=== PATIENT | male | born 1965 | race Caucasian/White ===

== ENCOUNTER 2017-06-24 10:48 | Inpatient (IN) | payer BC ==
[~2017-06-24] VITALS: Ht 188 cm; Wt 105.5 kg
[2017-06-24] MEDS ORDERED: SODIUM CHLORIDE 0.9% 1000ML 1,000 ML IV STA (11:07)
[2017-06-24] MEDS ORDERED: GABA-113 PO (11:35)
[2017-06-24] MEDS ORDERED: ALT/10 PO (11:35)
[2017-06-24] MEDS ORDERED: ATOR-26 PO (11:35)
[2017-06-24] MEDS ORDERED: ASPI81TA28 PO (11:35)
[2017-06-24] MEDS ORDERED: LVMI SQ (11:35)
[2017-06-24] MEDS ORDERED: NVLG SQ ×2 (11:35)
[2017-06-24 11:41] LABS: BASO % 0.3 %; BASO ABS # 0.04 K/uL (0-0.2); COMPLETE YES; EOS % 1.1 %; HEMATOCRIT 39.5 % (42-52); IG% 0.3 %; LYMPH % 8.5 %; LYMPH ABS # 0.98 K/uL (1.2-3.4); MEAN CELL VOLUME 84.9 fL (80-100); MEAN CORPUSCULAR HEMOGLOBIN 28.8 pg (25-34); MEAN CORPUSCULAR HGB CONC 33.9 g/dl (32-36); MEAN PLATELET VOLUME 11.4 fL (7.4-10.4); MONO % 5.7 %; NEUT % 84.1 %; PLATELET COUNT 208 K/uL (130-400); RED BLOOD COUNT 4.65 M/uL (4.7-6.1); WHITE BLOOD COUNT 11.52 K/uL (4.8-10.8)
[2017-06-24 11:48] LABS: BUN/CREATININE RATIO 11.6 (10-20); CALCIUM 9.4 mg/dl (8.5-10.1); CREATININE 0.93 mg/dl (0.60-1.40); POTASSIUM 3.6 mmol/L (3.5-5.1)
--- NOTE | 2017-06-24 11:49 | EMERGENCY ROOM VISIT NOTE ---
History First contact with patient: 10:58 Chief Complaint: SWELLING TO EXTREMITY Stated Complaint: SWELLING TO LEFT FOOT History of Present Illness The patient is a 51 year old male who presents to the Emergency Room via private vehicle with complaints of "swelling to left foot". The patient states that he is a type I diabetic, with a last hemoglobin of 9.8, and this past Sunday noticed that he had a little bit of drainage from the bottom of his left foot. He was at [place] with his children, and has been traveling a lot since then. He states that he wrapped it with antibiotic gauze pads, and it seemed to improve. He states that unfortunately this week he has been flying a lot, and has been noticing some blistering between the left first digit and second digit of the foot. This then 2 days ago progressed to redness, and now he has red streaking up his left leg. He has been referred here by medics press over concern for a rapidly progressing cellulitis. His tetanus is up-to- date. He has minimal chills. He denies any fevers. Review of Systems A complete 10-point Review of Systems was discussed with the patient, with pertinent positives and negatives listed in the History of Present Illness. All remaining Review of Systems questions can be considered negative unless otherwise specified. Past Medical/Surgical History Type 1 diabetes Family History No pertinent Social History Smoking Status: Never Smoker Patient lives locally with family. Current/Historical Medications Scheduled Aspirin (Aspirin Ec), 81 MG PO DAILY Atorvastatin (Lipitor), 80 MG PO HS Gabapentin (Neurontin), 300 MG PO BID Insulin Aspart (Novolog), 20 UNITS SQ QAM Insulin Aspart (Novolog), 25 UNITS SQ DAILYBD Insulin Detemir (Levemir), 32 UNITS SQ HS Ramipril (Altace), 10 MG PO BID Physical Exam Vital Signs Date Time Temp Pulse Resp B/P (MAP) Pulse Ox O2 Delivery O2 Flow Rate FiO2 06/24/17 12:55 93 16 151/87 99 Room Air 06/24/17 10:50 36.7 97 18 144/91 97 Room Air Physical Exam VITAL SIGNS - Vital signs and nursing notes were reviewed. Stable. Afebrile. Hypertensive at 144/91, non-tachycardic and is saturating well on room air 97%. GENERAL -51-year-old male appearing his stated age who is in no acute distress. Communicates well with provider and answers questions appropriately. SKIN - the left foot displays erythema from the toes extending up to the midfoot region with lethargic streaking up to the location of the left knee. There is a small bullae between the left first and second toe. This is fluctuant, it is not purulent. HEAD - NC/AT. EYES - Sclera anicteric. EARS - No deformities of external structures noted on gross examination bilaterally. NOSE - Midline and without cyanosis. No epistaxis or purulent drainage noted. MOUTH/OROPHARYNX - Without perioral cyanosis. Buccal mucosa pink and moist and without leukoplakia. LUNGS - Chest wall symmetric without accessory muscle use, intercostals retractions, or central cyanosis. Normal vesicular breath sounds CTA B/L. No wheezes, rales, or rhonchi appreciated. CARDIAC - RRR with S1/S2. No murmur, rubs, or gallops appreciated. EXTREMITIES - No clubbing or peripheral cyanosis. No pretibial edema present. Skin changes as noted above. +5/5 strength noted in UE/LE bilaterally. NEUROLOGIC - Cranial nerves II through XII grossly intact. Sensory intact to light touch throughout. PSYCH - A&O, and cooperates fully with examiner. Pt is very pleasant and interacts well with examiner. Medical Decision & Procedures ER Provider Diagnostic Interpretation: LEFT VENOUS DOPP LOWER EXT UNILAT CLINICAL HISTORY: 51 years-old Male presenting with Left foot infection, concern for additional DVT. TECHNIQUE: Real-time grayscale and color and spectral Doppler ultrasound imaging of the veins of the 06/24/2017 was performed. Compression and augmentation were also utilized. COMPARISON: None. FINDINGS: Left: Common femoral vein: Patent. Femoral vein: Patent. Greater saphenous vein: Patent. Popliteal vein: Patent. Calf veins: Limited visualization. Other: Enlarged left inguinal lymph node, which maintains a benign morphology with normal fatty hilum and comparatively normal cortical thickness. IMPRESSION: No evidence of deep venous thrombosis. Electronically signed by: Min Bourgeois M.D. 06/24/2017 12:27 PM Dictated Date/Time: 06/24/2017 12:27 PM Laboratory Results 06/24/17 11:18 Red Blood Count 4.65, Mean Corpuscular Volume 84.9, Mean Corpuscular Hemoglobin 28.8, Mean Corpuscular Hemoglobin Concent 33.9, Mean Platelet Volume 11.4, Neutrophils (%) (Auto) 84.1, Lymphocytes (%) (Auto) 8.5, Monocytes (%) (Auto) 5.7, Eosinophils (%) (Auto) 1.1, Basophils (%) (Auto) 0.3, Neutrophils # (Auto) 9.68, Lymphocytes # (Auto) 0.98, Monocytes # (Auto) 0.66, Eosinophils # (Auto) 0.13, Basophils # (Auto) 0.04 06/24/17 11:18 Test 06/24/17 11:18 White Blood Count 11.52 K/uL (4.8-10.8) Red Blood Count 4.65 M/uL (4.7-6.1) Hemoglobin 13.4 g/dL (14.0-18.0) Hematocrit 39.5 % (42-52) Mean Corpuscular Volume 84.9 fL (80-100) Mean Corpuscular Hemoglobin 28.8 pg (25-34) Mean Corpuscular Hemoglobin Concent 33.9 g/dl (32-36) Platelet Count 208 K/uL (130-400) Mean Platelet Volume 11.4 fL (7.4-10.4) Neutrophils (%) (Auto) 84.1 % Lymphocytes (%) (Auto) 8.5 % Monocytes (%) (Auto) 5.7 % Eosinophils (%) (Auto) 1.1 % Basophils (%) (Auto) 0.3 % Neutrophils # (Auto) 9.68 K/uL (1.4-6.5) Lymphocytes # (Auto) 0.98 K/uL (1.2-3.4) Monocytes # (Auto) 0.66 K/uL (0.11-0.59) Eosinophils # (Auto) 0.13 K/uL (0-0.5) Basophils # (Auto) 0.04 K/uL (0-0.2) RDW Standard Deviation 42.1 fL (36.4-46.3) RDW Coefficient of Variation 13.6 % (11.5-14.5) Immature Granulocyte % (Auto) 0.3 % Immature Granulocyte # (Auto) 0.03 K/uL (0.00-0.02) Anion Gap 6.0 mmol/L (3-11) Est Creatinine Clear Calc Drug Dose 121.7 ml/min Estimated GFR () 109.8 Estimated GFR (Non- 94.7 BUN/Creatinine Ratio 11.6 (10-20) Lactic Acid Level 1.7 mmol/L (0.4-2.0) Calcium Level 9.4 mg/dl (8.5-10.1) Total Bilirubin 0.5 mg/dl (0.2-1) Aspartate Amino Transf (AST/SGOT) 10 U/L (15-37) Alanine Aminotransferase (ALT/SGPT) 31 U/L (12-78) Alkaline Phosphatase 164 U/L (45-117) Total Protein 7.5 gm/dl (6.4-8.2) Albumin 3.2 gm/dl (3.4-5.0) Globulin 4.3 gm/dl (2.5-4.0) Albumin/Globulin Ratio 0.7 (0.9-2) Medications Administered Medications (Trade) Dose Ordered Sig/Ricardo Route Start Time Stop Time Status Last Admin Dose Admin Sodium Chloride 1,000 ml @ 999 mls/hr Q1H1M STAT IV 06/24/17 11:07 06/24/17 12:07 DC 06/24/17 11:25 999 MLS/HR Medical Decision Patient was seen and evaluated as above. He presents to us today with an infection of the left foot extending up the left leg. It has been rapidly progressing noting it is only been 2 days. He is not on antibiotics. Unfortunately he does have type 1 diabetes, and has decreased sensation in his feet. His last A1c was 9.8. IV access was initiated, and the above workup was performed. Because of his long travel, I did elect to obtain a venous Doppler ultrasound this region to rule out additional pathology such as DVT. Slight leukocytosis, slight anemia. No evidence of kidney or liver failure. Glucose is high at 171, lactic acid is normal. Blood cultures are pending. Alkaline phosphatase is high at 164. He was given vancomycin and Zosyn secondary to the extent of the infection, being as though the redness extends via lymphangitic streaking up the location of the knee. This is concerning for greater than 50% of the extremity. I believe that inpatient management is warranted. Case was discussed with the attending physician. I discussed the case with the hospitalist, who agreed to evaluate the patient. Please refer to further documentation regarding his stay. In evaluation treatment this patient following differential diagnoses were entertained: Sepsis, cellulitis, among others. Impression Primary Impression: Swelling of left extremity Additional Impressions: Anemia Cellulitis Departure Information Dispostion Admitted as an inpatient Condition FAIR Referrals No Doctor, Assigned (PCP) Patient Instructions [facility] Problem Qualifiers
[2017-06-24 11:50] LABS: ALB/GLOB RATIO 0.7 (0.9-2)
--- NOTE | 2017-06-24 12:29 | DIAGNOSTIC IMAGING REPORT ---
LEFT VENOUS DOPP LOWER EXT UNILAT CLINICAL HISTORY: 51 years-old Male presenting with Left foot infection, concern for additional DVT. TECHNIQUE: Real-time grayscale and color and spectral Doppler ultrasound imaging of the veins of the 06/24/2017 was performed. Compression and augmentation were also utilized. COMPARISON: None. FINDINGS: Left: Common femoral vein: Patent. Femoral vein: Patent. Greater saphenous vein: Patent. Popliteal vein: Patent. Calf veins: Limited visualization. Other: Enlarged left inguinal lymph node, which maintains a benign morphology with normal fatty hilum and comparatively normal cortical thickness. IMPRESSION: No evidence of deep venous thrombosis. Electronically signed by: Min Bourgeois M.D. 06/24/2017 12:27 PM Dictated Date/Time: 06/24/2017 12:27 PM
[2017-06-24] MEDS ORDERED: PIPERACILLIN/TAZOBACTAM 4.5 GM/100ML D5W IV STA (13:06)
[2017-06-24] MEDS ORDERED: VANCOMYCIN 1GM/270ML NSS IV STA (13:06)
[2017-06-24] MEDS ORDERED: DEXTROSE 50% 50 ML SYR IV PRN (13:45)
[2017-06-24] MEDS ORDERED: MAGNESIUM HYDROXIDE SUSP 30 ML UDC PO PRN (13:45)
[2017-06-24] MEDS ORDERED: GLUCOSE 10 TABS/TUBE PO PRN (13:45)
[2017-06-24] MEDS ORDERED: GLUCOSE 40% GEL 15 GM TUBE PO PRN (13:45)
[2017-06-24] MEDS ORDERED: ONDANSETRON INJ 2 MG/ML 2 ML VIAL IV PRN (13:45)
[2017-06-24] MEDS ORDERED: ACETAMINOPHEN 325 MG TAB PO PRN (13:45)
[2017-06-24] MEDS ORDERED: GLUCAGON FOR INJ 1 MG VIAL SQ PRN (13:45)
--- NOTE | 2017-06-24 13:47 | History and Physical ---
History & Physical Date & Time of Service: Jun 24, 2017 at 13:36 Chief Complaint: Swelling To Left Foot Primary Care Physician: No Doctor, Assigned History of Present Illness Source: patient 51 y/o M c/o L foot swelling and redness. Pt states that he was a [place] recently and noted a "water blister". He was wrapping it with gauze and abx cream and he thought it had been looking better. He has had to travel a lot for work lately and took a red eye out of [place] Sunday night. He arrived to [place] Sunday morning and noted that his L LE was more red and swollen. Today it was worse with streaking into his leg so he went to [facility] for evaluation. He was sent here by their providers for further evaluation. He states he has been cold this morning, but no amberly fevers or chills. He has neuropathy and states that due to this he does not have much pain. He has felt well otherwise. Pt denies SOB, chest pain, abd pain, n/v/c/d. Pt was given IVF and abx in the ED and feels that the redness and swelling are both improving. Pt and family just moved to the area recently and need to establish with PCP. He had his A1c and lipids checked with his former PCP about 4 months ago and states that his A1c was 9.8 and lipids were "fine". Past Medical/Surgical History DM-I HTN Hyperlipidemia AL s/p stent 2014 Peripheral neuropathy Family History DM-II in uncle, hx of osteomyelitis Social History Smoking Status: Never Smoker Alcohol Use: occasionally (1-2 drinks every few weeks) Drug Use: none Allergies Coded Allergies: No Known Allergies (Unverified , 06/24/17) Home Medications Scheduled Aspirin (Aspirin Ec), 81 MG PO DAILY Atorvastatin (Lipitor), 80 MG PO HS Gabapentin (Neurontin), 300 MG PO BID Insulin Aspart (Novolog), 20 UNITS SQ QAM Insulin Aspart (Novolog), 25 UNITS SQ DAILYBD Insulin Detemir (Levemir), 32 UNITS SQ HS Ramipril (Altace), 10 MG PO BID Review of Systems Pertinent positives and negatives reviewed in HPI--all others negative Physical Exam Vital Signs Date Time Temp Pulse Resp B/P (MAP) Pulse Ox O2 Delivery O2 Flow Rate FiO2 06/24/17 12:55 93 16 151/87 99 Room Air 06/24/17 10:50 36.7 97 18 144/91 97 Room Air General Appearance: WD/WN, no apparent distress Head: normocephalic, atraumatic Eyes: normal inspection, EOMI Respiratory/Chest: normal breath sounds, no respiratory distress Cardiovascular: regular rate, rhythm, no edema Abdomen/GI: non tender, soft Extremities/Musculoskelatal: no calf tenderness, + pedal edema (mild, non- pitting) Neurologic/Psych: alert, normal mood/affect, oriented x 3 Skin: warm/dry, + pertinent finding (Large blister between 1st and 2nd toes on the L that is intact and non-fluctuant. Old healing blister on bottom of L foot with redness noted. Most substantial redness is dorsal surface of L foot with light pink spreading onto medial calf to knee) Diagnostics Laboratory Results Results Past 24 Hours Test 06/24/17 11:18 Range/Units White Blood Count 11.52 4.8-10.8 K/uL Red Blood Count 4.65 4.7-6.1 M/uL Hemoglobin 13.4 14.0-18.0 g/dL Hematocrit 39.5 42-52 % Mean Corpuscular Volume 84.9 80-100 fL Mean Corpuscular Hemoglobin 28.8 25-34 pg Mean Corpuscular Hemoglobin Concent 33.9 32-36 g/dl Platelet Count 208 130-400 K/uL Mean Platelet Volume 11.4 7.4-10.4 fL Neutrophils (%) (Auto) 84.1 % Lymphocytes (%) (Auto) 8.5 % Monocytes (%) (Auto) 5.7 % Eosinophils (%) (Auto) 1.1 % Basophils (%) (Auto) 0.3 % Neutrophils # (Auto) 9.68 1.4-6.5 K/uL Lymphocytes # (Auto) 0.98 1.2-3.4 K/uL Monocytes # (Auto) 0.66 0.11-0.59 K/uL Eosinophils # (Auto) 0.13 0-0.5 K/uL Basophils # (Auto) 0.04 0-0.2 K/uL RDW Standard Deviation 42.1 36.4-46.3 fL RDW Coefficient of Variation 13.6 11.5-14.5 % Immature Granulocyte % (Auto) 0.3 % Immature Granulocyte # (Auto) 0.03 0.00-0.02 K/uL Sodium Level 139 136-145 mmol/L Potassium Level 3.6 3.5-5.1 mmol/L Chloride Level 102 98-107 mmol/L Carbon Dioxide Level 31 21-32 mmol/L Anion Gap 6.0 3-11 mmol/L Blood Urea Nitrogen 11 7-18 mg/dl Creatinine 0.93 0.60-1.40 mg/dl Est Creatinine Clear Calc Drug Dose 121.7 ml/min Estimated GFR () 109.8 Estimated GFR (Non- 94.7 BUN/Creatinine Ratio 11.6 10-20 Random Glucose 171 70-99 mg/dl Lactic Acid Level 1.7 0.4-2.0 mmol/L Calcium Level 9.4 8.5-10.1 mg/dl Total Bilirubin 0.5 0.2-1 mg/dl Aspartate Amino Transf (AST/SGOT) 10 15-37 U/L Alanine Aminotransferase (ALT/SGPT) 31 12-78 U/L Alkaline Phosphatase 164 45-117 U/L Total Protein 7.5 6.4-8.2 gm/dl Albumin 3.2 3.4-5.0 gm/dl Globulin 4.3 2.5-4.0 gm/dl Albumin/Globulin Ratio 0.7 0.9-2 Microbiology Results 06/24/17 Blood Culture, Received Pending 06/24/17 Blood Culture, Received Pending Diagnostic Radiology L LE US: neg for DVT Impression Assessment and Plan 51 y/o M who was admitted on 06/24 for diabetic cellulitis Cellulitis: in the setting of DM-I Zosyn started in the ED, will continue Gentle IVF LE US neg for DVT Blood cx pending Mildly elevated WBC, afebrile Would care nurse to see DM-I: Last A1c was 4 months ago, 9.8 per pt Repeat continue home meds Non-fasting BS is 171 HTN: continue home meds Hyperlipidemia: continue home meds Lipids in AM Hx of AL: stent x1 continue aspirin 81mg Peripheral neuropathy: continue home meds Other: Full code DM diet Ambulation for DVT proph CM notified to assist in setting up a PCP Level of Care Med/Surg VTE Prophylaxis VTE Risk Assessment Done? Y/N: Yes Risk Level: Low
[2017-06-24 14:32] VITALS: BP 162/92; PULSE 92; TEMP 37; O2SAT 95; BMI 29.9
[2017-06-24 15:53] VITALS: BP 167/90; PULSE 93; TEMP 36.9; O2SAT 96
[2017-06-24 16:00] VITALS: O2SAT 96
[2017-06-24] MEDS ORDERED: PIPERACILL/TAZOBAC CONSULT ACTIVE PRN (16:15)
[2017-06-24] MEDS: SODIUM CHLORIDE 0.9% 1000ML 1,000 ML IV SCH (16:16)
[2017-06-24] MEDS: INSULIN ASPART 100 UNITS/ML 3 ML PEN SQ SCH ×2 (18:32→21:47)
[2017-06-24] MEDS ORDERED: PNEUMOCOCCAL POLYSACCHARIDES 25 MCG/0.5 ML VIAL/SYR IM. ONE (19:15)
[2017-06-24] MEDS ORDERED: PNEUMOCOCCAL ADMINISTRATION CHARGE ONE (19:15)
[2017-06-24] MEDS ORDERED: NON-FORMULARY MEDICATION (Ramipril (Altace) 10 MG) PO SCH (21:00)
[2017-06-24] MEDS: GABAPENTIN 300 MG CAP PO SCH (21:46)
[2017-06-24] MEDS: ATORVASTATIN 40 MG TAB PO SCH (21:46)
[2017-06-24] MEDS: INSULIN DETEMIR FLEXPEN/FLEX TOUCH 100 UNITS/ML 3ML SQ SCH (21:48)
[2017-06-24] MEDS: PIPERACILL/TAZOBAC IV 3.375 GM in DEXTROSE 5% 100ML 100 ML IV SCH (22:35)
[2017-06-25] VITALS (7 sets, daily range): BP systolic 129–149; BP diastolic 77–82; PULSE 85–106; TEMP 37.2–37.7; O2SAT 93–95; Ht 188 cm; Wt 105.5 kg
[2017-06-25] MEDS: ZOLPIDEM TARTRATE 5 MG TAB PO PRN ×2 (00:15→23:13)
[2017-06-25] MEDS: SODIUM CHLORIDE 0.9% 1000ML 1,000 ML IV SCH ×2 (02:54→15:57)
[2017-06-25 05:57] LABS: MEAN CELL VOLUME 86.7 fL (80-100); MEAN CORPUSCULAR HEMOGLOBIN 27.9 pg (25-34); MEAN CORPUSCULAR HGB CONC 32.2 g/dl (32-36); MEAN PLATELET VOLUME 11.1 fL (7.4-10.4); PLATELET COUNT 191 K/uL (130-400); RED BLOOD COUNT 4.27 M/uL (4.7-6.1); WHITE BLOOD COUNT 8.97 K/uL (4.8-10.8)
[2017-06-25] MEDS: PIPERACILL/TAZOBAC IV 3.375 GM in DEXTROSE 5% 100ML 100 ML IV SCH ×3 (06:30→22:28)
[2017-06-25 06:37] LABS: CHOLESTEROL/HDL RATIO 2.6
[2017-06-25 06:46] LABS: ESTIMATED AVERAGE GLUCOSE 295 mg/dl; HA1C FLAG Normal (Normal)
[2017-06-25] MEDS: INSULIN ASPART 100 UNITS/ML 3 ML PEN SQ SCH ×4 (08:52→21:16)
[2017-06-25] MEDS: ASPIRIN 81 MG ECTAB PO SCH (08:52)
[2017-06-25] MEDS: GABAPENTIN 300 MG CAP PO SCH ×2 (08:52→21:12)
[2017-06-25] MEDS: RAMIPRIL 10 MG CAP PO SCH ×2 (08:53→21:12)
[2017-06-25] MEDS ORDERED: INSULIN ASPART 100 UNITS/ML 3 ML PEN SQ SCH (09:00)
[2017-06-25] MEDS ORDERED: METOPROLOL SUCC 25MG EXT REL TAB PO ONE (10:00)
--- NOTE | 2017-06-25 14:08 | Wound Consultation: Inpatient ---
Wound Consultation Date of Consultation: Jun 25, 2017. Attending Physician: Ranjan Huggins D.O. Reason for Consultation: Blister formation and infection left foot History of Present Illness Patient states he noticed some swelling and redness to his left foot last Sunday evening. Patient states he has recently been traveling to [place] on business. Patient states that on Sunday the foot appeared more red and swollen. Patient was some squamous seen at [facility] on Sunday and transferred to the hospital for admission. Patient states she denies any fever chills or night sweats at the current time. Patient denies any known trauma. Patient states that he did have a prior blister formation on the plantar surface of this foot approximately 3 weeks ago unrelated to the current location. Patient states that this resolved on its own. Patient has no prior history of diabetic foot ulcers. Patient states that his diabetes has not been well controlled with a prior A1c in the 9 range. Patient denies any chest pain shortness of breath abdominal discomfort nausea or vomiting patient denies any other systemic complaints at this time. Social History Smoking Status: Former Smoker Alcohol Use: occasionally (1-2 drinks every few weeks) Drug Use: none Allergies Coded Allergies: No Known Allergies (Unverified , 06/24/17) Home Medications Scheduled Aspirin (Aspirin Ec), 81 MG PO DAILY Atorvastatin (Lipitor), 80 MG PO HS Gabapentin (Neurontin), 300 MG PO BID Insulin Aspart (Novolog), 20 UNITS SQ QAM Insulin Aspart (Novolog), 25 UNITS SQ DAILYBD Insulin Detemir (Levemir), 32 UNITS SQ HS Ramipril (Altace), 10 MG PO BID Inpatient Medications Current Inpatient Medications Medications (Trade) Dose Ordered Sig/Ricardo Route Start Time Stop Time Status Last Admin Dose Admin Acetaminophen (Tylenol Tab) 650 mg Q4H PRN PO 06/24/17 13:45 07/24/17 13:44 Magnesium Hydroxide (Milk Of Magnesia Susp) 30 ml Q6H PRN PO 06/24/17 13:45 07/24/17 13:44 Ondansetron HCl (Zofran Inj) 4 mg Q6H PRN IV 06/24/17 13:45 07/24/17 13:44 Glucose (Glucose 40% Gel) 15-30 GRAMS 15 GRAMS... UD PRN PO 06/24/17 13:45 07/24/17 13:44 Glucose (Glucose Chew Tab) 4-8 Tablets 4 Tabl... UD PRN PO 06/24/17 13:45 07/24/17 13:44 Dextrose (Dextrose 50% 50ML Syringe) 25-50ML OF 50% DW IV FOR... UD PRN IV 06/24/17 13:45 07/24/17 13:44 Glucagon (Glucagon Inj) 1 mg UD PRN SQ 06/24/17 13:45 07/24/17 13:44 Aspirin (Ecotrin Tab) 81 mg DAILY PO 06/25/17 09:00 07/25/17 08:59 06/25/17 08:52 81 MG Atorvastatin Calcium (Lipitor Tab) 80 mg HS PO 06/24/17 21:00 07/24/17 20:59 06/24/17 21:46 80 MG Gabapentin (Neurontin Cap) 300 mg BID PO 06/24/17 21:00 07/24/17 20:59 06/25/17 08:52 300 MG Insulin Aspart (novoLOG ASPART) ACHS SQ 06/24/17 16:30 07/24/17 16:29 06/25/17 12:40 10 UNITS Insulin Detemir (Levemir Flexpen/ FlexTouch) 32 units HS SQ 06/24/17 21:00 07/24/17 20:59 06/24/17 21:48 32 UNITS Piperacillin Sod/ Tazobactam Sod 3.375 gm/Dextrose 115 ml @ 28.75 mls/ hr Q8H IV 06/24/17 23:00 07/04/17 22:59 06/25/17 06:30 28.75 MLS/HR Sodium Chloride 1,000 ml @ 75 mls/hr [id number] IV 06/24/17 13:45 07/24/17 13:44 06/25/17 02:54 75 MLS/HR Piperacillin Sod/ Tazobactam Sod (Consult) 1 ea UD PRN N/A 06/24/17 16:15 07/24/17 16:14 Ramipril (Ramipril) 10 mg BID PO 06/25/17 09:00 07/25/17 08:59 06/25/17 08:53 10 MG Zolpidem Tartrate (Ambien Tab) 2.5 mg HS PRN PO 06/24/17 23:30 07/24/17 23:29 06/25/17 00:15 2.5 MG Metoprolol Succinate (Toprol Xl Tab) 25 mg QAM PO 06/26/17 09:00 07/26/17 08:59 Review of Systems 10 systems were reviewed and they're entirety and positive findings were noted in the chief complaint history of present illness. Physical Exam Date Time Temp Pulse Resp B/P (MAP) Pulse Ox O2 Delivery O2 Flow Rate FiO2 06/25/17 09:47 96 149/82 (104) 06/25/17 08:51 106 148/82 (104) 06/25/17 08:00 Room Air 06/25/17 07:24 37.2 85 18 138/81 (100) 95 Room Air 06/25/17 00:11 37.2 103 20 129/77 (94) 93 Room Air 06/25/17 00:00 Room Air 06/24/17 16:00 96 Room Air 06/24/17 15:53 36.9 93 20 167/90 (115) 96 Room Air 06/24/17 14:32 37.0 92 18 162/92 95 Room Air General: The patient is lying in a hospital bed in no distress. Alert, cooperative and appropriate to all questions. HEENT: Pupils equal and reactive to light. Sclera clear, EOM intact. Neck: Supple, No JVD noted Chest: CTA in all espana. No deformity Heart: RRR without murmurs, S3, S4, thrills, rubs or heaves Extremities: There is a purulent blister formation present on the dorsal and web location between the first and second toes on the left foot. This extends 1 to the plantar surface. No active drainage is present. No tenderness to palpation noted. Fluctuance is noted at the site. Sensation is significantly diminished throughout the toe areas. Pulses are +2 dorsal pedal thousand posterior tibial region. Distal capillary refill is less than 2 seconds. Full range of motion is present in the foot and toe region. Some periwound erythema is noted. No edema or calf tenderness present. Neurological: Alert and oriented x3. No focal deficits. Skin: No rashes, papules, vesicles, excoriations Laboratory Results Last 24 Hours Test 06/24/17 16:25 06/24/17 20:14 9/18/17 05:24 06/25/17 07:35 Bedside Glucose 156 mg/dl 271 mg/dl 136 mg/dl White Blood Count 8.97 K/uL Red Blood Count 4.27 M/uL Hemoglobin 11.9 g/dL Hematocrit 37.0 % Mean Corpuscular Volume 86.7 fL Mean Corpuscular Hemoglobin 27.9 pg Mean Corpuscular Hemoglobin Concent 32.2 g/dl RDW Standard Deviation 43.2 fL RDW Coefficient of Variation 13.6 % Platelet Count 191 K/uL Mean Platelet Volume 11.1 fL Estimated Average Glucose 295 mg/dl Hemoglobin A1c 11.9 % Triglycerides Level 125 mg/dl Cholesterol Level 124 mg/dl HDL Cholesterol 47 mg/dl LDL Cholesterol, Calculated 52 mg/dl VLDL Cholesterol, Calculated 25 mg/dl Cholesterol/HDL Ratio 2.6 Test 06/25/17 11:23 Bedside Glucose 230 mg/dl Assessment & Plan Assessment: Diabetic foot ulcer Infante grade 2 left foot Cellulitis left foot Rule out osteomyelitis Plan: At this time the site did require debridement. With the patient's permission the blister formation was deroofed underlying slough and some subcutaneous tissue was removed with a combination of scissors forceps and a #5 curette. Minimal bleeding occurred which was controlled with direct pressure. Culture was obtained even though the patient is currently on antibiotic therapy. The site of be dressed with Aquacel Ag and gauze changed daily basis patient be reevaluated by orthotics for ongoing offloading issues. Patient will continue to be monitored during his hospitalization will be followed up the application clinic upon discharge. This represented a non-excisional debridement of less than 20 cm. Post debridement measurements were 5.7 x 1.8 x 0.3 cm.
--- NOTE | 2017-06-25 15:00 | Progress Note ---
Subjective Date of Service: Jun 25, 2017. Subjective Pt evaluation today including: conversation w/ patient, physical exam, chart review, lab review, review of inpatient medication list long time face to face predominantly discussing life stressors and DM care, also discussing foot infection notes it doesn't hurt that much. looks much better than it did before. has been in [facility] about 7 months but had yet to establish care - notes lots of life stressors and busy job. Problem List Medical Problems: (1) Anemia Status: Acute (2) Cellulitis Status: Acute (3) Swelling of left extremity Status: Acute Review of Systems all other ROS otherwise negative except for as above Objective Vital Signs Date Time Temp Pulse Resp B/P (MAP) Pulse Ox O2 Delivery O2 Flow Rate FiO2 06/25/17 09:47 96 149/82 (104) 06/25/17 08:51 106 148/82 (104) 06/25/17 08:00 Room Air 06/25/17 07:24 37.2 85 18 138/81 (100) 95 Room Air 06/25/17 00:11 37.2 103 20 129/77 (94) 93 Room Air 06/25/17 00:00 Room Air 06/24/17 16:00 96 Room Air 06/24/17 15:53 36.9 93 20 167/90 (115) 96 Room Air Physical Exam General Appearance: no apparent distress Eyes: EOMI ENT: hearing grossly normal Neck: trachea midline Respiratory/Chest: no respiratory distress, no accessory muscle use Extremities: + pertinent finding (LLE large pustule between 1st/2nd toes, erythema tracking up dorsum of foot, nontender no crepitis, smaller than previously outlined area) Neurologic/Psychiatric: side guider II-XII nml as tested, alert, normal mood/affect Laboratory Results Last 24 Hours Test 06/24/17 16:25 06/24/17 20:14 06/25/17 05:24 06/25/17 07:35 Bedside Glucose 156 mg/dl 271 mg/dl 136 mg/dl White Blood Count 8.97 K/uL Red Blood Count 4.27 M/uL Hemoglobin 11.9 g/dL Hematocrit 37.0 % Mean Corpuscular Volume 86.7 fL Mean Corpuscular Hemoglobin 27.9 pg Mean Corpuscular Hemoglobin Concent 32.2 g/dl RDW Standard Deviation 43.2 fL RDW Coefficient of Variation 13.6 % Platelet Count 191 K/uL Mean Platelet Volume 11.1 fL Estimated Average Glucose 295 mg/dl Hemoglobin A1c 11.9 % Triglycerides Level 125 mg/dl Cholesterol Level 124 mg/dl HDL Cholesterol 47 mg/dl LDL Cholesterol, Calculated 52 mg/dl VLDL Cholesterol, Calculated 25 mg/dl Cholesterol/HDL Ratio 2.6 Test 06/25/17 11:23 Bedside Glucose 230 mg/dl Assessment and Plan Cellulitis/diabetic foot infection: -consult wound physician - appears likely to need debrided -continue zosyn for now -cellulitis appearing improved from prior descriptions and pt's noted improvement -continue supportive care DM-I: uncontrolled -improved control in hospital -extensive discussion w pt on control - he actually expresses very solid understanding of self-care, carb-based insulins, etc - but notes that he's frequently just "fallen off the wagon" in taking care of things -- aware of fdc complications ( although was blaming CAD/stent more on vague "family history" than uncontrolled DM) and started to express motivation and need to take care of his DM regardless of life circumstances. gave tips for high yield management and ways to try to make things easier for him HTN: continue home meds Hyperlipidemia: continue home meds Lipids at goal Hx of PA: stent x1 continue aspirin 81mg Peripheral neuropathy: continue home meds, better sugar control Other: Full code DM diet Ambulation for DVT proph
[2017-06-25] MEDS: ATORVASTATIN 40 MG TAB PO SCH (21:10)
[2017-06-25] MEDS: INSULIN DETEMIR FLEXPEN/FLEX TOUCH 100 UNITS/ML 3ML SQ SCH (21:17)
[2017-06-26 03:35] VITALS: TEMP 36.6
[2017-06-26] MEDS: SODIUM CHLORIDE 0.9% 1000ML 1,000 ML IV SCH ×2 (04:49→19:30)
[2017-06-26 07:49] VITALS: BP 125/79; PULSE 91; TEMP 37; O2SAT 96
[2017-06-26] MEDS: INSULIN ASPART 100 UNITS/ML 3 ML PEN SQ SCH ×4 (08:23→21:30)
[2017-06-26] MEDS: PIPERACILL/TAZOBAC IV 3.375 GM in DEXTROSE 5% 100ML 100 ML IV SCH ×3 (08:23→22:44)
[2017-06-26] MEDS: GABAPENTIN 300 MG CAP PO SCH ×2 (08:24→21:24)
[2017-06-26] MEDS: METOPROLOL SUCC 25MG EXT REL TAB PO SCH (08:24)
[2017-06-26] MEDS: ASPIRIN 81 MG ECTAB PO SCH (08:24)
[2017-06-26] MEDS: RAMIPRIL 10 MG CAP PO SCH ×2 (08:24→21:24)
[2017-06-26 11:32] VITALS: BP 163/93; PULSE 88; TEMP 36.6; O2SAT 96
--- NOTE | 2017-06-26 14:31 | DIAGNOSTIC IMAGING REPORT ---
MRI OF THE LEFT FOREFOOT WITHOUT AND WITH GADOLINIUM CLINICAL HISTORY: Diabetic foot ulcer. Possible osteomyelitis. COMPARISON STUDY: No previous studies for comparison. FINDINGS: Imaging was performed in the sagittal, axial and coronal planes. The patient was imaged before and after administration of 10 cc of intravenous Gadavist. There is a radiopaque marker at the level of a dorsal soft tissue ulceration. This is located between the great toe and second toe webspace. There are no areas of marrow edema to indicate osteomyelitis. There is apparent sinus tract extending to the plantar aspect of the foot. There are 2 T2 bright collections each of which measures approximately 1 cm. These do not demonstrate ring enhancement which suggests phlegmonous changes opposed to a true abscess. There is also a small fluid collection along the left second toe extensor tendon. There is diffuse soft tissue edema present. This involves the intrinsic musculature of the foot suggesting a nonspecific myositis. IMPRESSION: 1. No evidence of osteomyelitis 2. Diffuse soft tissue edema including intramuscular edema indicative of a diffuse myositis 3. Dorsal soft tissue ulceration with a sinus tract extending to 2 T2 bright foci within the plantar aspect of the foot each of which measures approximately 1 cm. As there is no rim enhancement, phlegmonous change is favored over a true abscess. Electronically signed by: Cliff Kilgore M.D. 06/26/2017 2:29 PM Dictated Date/Time: 06/26/2017 2:17 PM
--- NOTE | 2017-06-26 14:36 | Progress Note ---
Subjective Date of Service: Jun 26, 2017. Subjective Pt evaluation today including: conversation w/ patient, physical exam, chart review, lab review, review of inpatient medication list foot looking better, feeling better. not much pain. no f/c/s. notes sugars doing better, realizing that he can't stop taking care of DM or he'll start to suffer irreversible consequences Problem List Medical Problems: (1) Anemia Status: Acute (2) Cellulitis Status: Acute (3) Swelling of left extremity Status: Acute Review of Systems all other ROS otherwise negative except for as above Objective Vital Signs Date Time Temp Pulse Resp B/P (MAP) Pulse Ox O2 Delivery O2 Flow Rate FiO2 06/26/17 11:32 36.6 88 18 163/93 (116) 96 Room Air 06/26/17 08:00 Room Air 06/26/17 07:49 37.0 91 18 125/79 (94) 96 Room Air 06/26/17 03:35 36.6 06/26/17 00:00 Room Air 06/25/17 23:05 37.7 94 18 131/82 (98) 94 Room Air 06/25/17 15:45 95 Room Air 06/25/17 15:27 37.6 91 18 146/80 (102) 95 Physical Exam General Appearance: no apparent distress Eyes: EOMI ENT: hearing grossly normal Neck: trachea midline Respiratory/Chest: no respiratory distress, no accessory muscle use Extremities: + pertinent finding (LLE pustule evacuated, ulcer remains, clean base, no exudate. dorsum of foot erythema slowly clearing no crepitis) Neurologic/Psychiatric: group exercise manager II-XII nml as tested, alert, normal mood/affect Skin: normal color, warm/dry (except for as above in extremities) Laboratory Results Last 24 Hours Test 06/25/17 16:25 06/25/17 20:23 06/26/17 07:40 06/26/17 11:29 Bedside Glucose 234 mg/dl 211 mg/dl 130 mg/dl 216 mg/dl Assessment and Plan Cellulitis/diabetic foot infection: -ongoing wound care -continue zosyn for now pending MRI and further growth from Cx -cellulitis slowly improving -continue supportive care DM-I: uncontrolled -improved control in hospital -reiterated extensive discussion w pt on control - he actually expresses very solid understanding of self-care, carb-based insulins, etc, and now is starting to express more motivation to care for himself regardless of other surrounding circumstances HTN: continue home meds Hyperlipidemia: continue home meds Lipids at goal CAD w [place]: stent x1 continue aspirin 81mg -no sx Peripheral neuropathy: continue home meds, better sugar control Other: Full code DM diet add lovenox DVT proph
[2017-06-26 15:28] VITALS: BP 167/94; PULSE 89; TEMP 36.9; O2SAT 97
[2017-06-26 15:44] LABS: INR 0.9 (0.9-1.1); PROTHROMBIN TIME (PATIENT) 9.7 SECONDS (9.0-12.0)
[2017-06-26 16:00] VITALS: O2SAT 97
[2017-06-26] MEDS: LACTOBACILLUS ACIDOPHILUS (FLORANEX) TAB PO SCH (17:11)
[2017-06-26] MEDS ORDERED: ENOXAPARIN 40 MG/0.4 ML SYR SQ SCH (21:00)
[2017-06-26] MEDS: ATORVASTATIN 40 MG TAB PO SCH (21:24)
[2017-06-26] MEDS: INSULIN DETEMIR FLEXPEN/FLEX TOUCH 100 UNITS/ML 3ML SQ SCH (21:30)
[2017-06-26] MEDS: ZOLPIDEM TARTRATE 5 MG TAB PO PRN (22:45)
[2017-06-27] MEDS: PIPERACILL/TAZOBAC IV 3.375 GM in DEXTROSE 5% 100ML 100 ML IV SCH ×2 (06:30→14:03)
[2017-06-27 06:50] LABS: CREATININE 0.81 mg/dl (0.60-1.40)
[2017-06-27 07:30] VITALS: BP 158/84; PULSE 92; TEMP 37.2; O2SAT 95
[2017-06-27] MEDS: METOPROLOL SUCC 25MG EXT REL TAB PO SCH (07:39)
[2017-06-27] MEDS: GABAPENTIN 300 MG CAP PO SCH (07:39)
[2017-06-27] MEDS: LACTOBACILLUS ACIDOPHILUS (FLORANEX) TAB PO SCH ×3 (07:39→16:40)
[2017-06-27] MEDS: ASPIRIN 81 MG ECTAB PO SCH (07:39)
[2017-06-27] MEDS: RAMIPRIL 10 MG CAP PO SCH (07:40)
[2017-06-27] MEDS: INSULIN ASPART 100 UNITS/ML 3 ML PEN SQ SCH ×3 (08:20→17:37)
[2017-06-27] MEDS: SODIUM CHLORIDE 0.9% 1000ML 1,000 ML IV SCH (08:21)
[2017-06-27] MEDS ORDERED: LCTX PO (11:13)
[2017-06-27] MEDS ORDERED: TPRSR25 PO (11:13)
[2017-06-27] MEDS ORDERED: AMOX875T PO (11:13)
[2017-06-27 11:26] VITALS: BP 147/87; PULSE 86; TEMP 36.9; O2SAT 96
--- NOTE | 2017-06-27 11:26 | Discharge Instructions ---
Discharge Instructions Date of Service Jun 27, 2017. Admission Reason for Admission: Cellulitis Discharge Discharge Diagnosis / Problem: cellulitis and myositis (muscle infection) Discharge Goals Goal(s): Diagnostic testing, Therapeutic intervention Activity Recommendations Activity Limitations: as noted below (use the walking boot to reduce pressure on your foot until directed otherwise by the wound clinic) . Instructions / Follow-Up Instructions / Follow-Up foot infection -the infection appears to involve the skin, underlying soft tissue, and underlying muscle. fortunately there is no evidence of a bone infection -getting better from this is likely to be slow: -because of how swollen and inflamed it was, there's a good chance of ongoing small ulcerations just from the inflammatory fluid tracking down and causing pressure on other parts of your foot. be extremely careful with using the boot and not putting extra pressure on the foot, and make sure you're following up with the wound clinic and following their ongoing recommendations -because of the muscle infection, it will likely take several weeks of antibiotics to get the bacterial infection part of this better. the exact duration will be based on how well/how quickly this heals, and therefore might vary anywhere between a few weeks to more than a month of ongoing antibiotics. for now, we've written the prescription to be for 3 more weeks, but as you're following up and things are healing they will be able to tell you if it's time to stop early, if the duration needs extended, or if things have taken an unforeseen turn and antibiotics need changed entirely -fortunately the bacteria growing on culture is a strain of staph sensitive to all antibiotics (staph is the most common bacteria we'll see in these infections because it is part of our normal skin bacteria) -- typically these infections have multiple bacteria involved (and only the most prevalent one grows out on culture) but because the bacteria shows no resistance to any antibiotics it's also unlikely that any of the other surrounding/underlying bacteria will be resistant either -for now, keep pressure off your foot, take the antibiotics twice a day (next dose tonight, 06/27/17) and follow actively with the wound clinic -big picture - keep your sugars under better control ---> because high sugars suppress your immune system, and because high sugars block blood vessels leading to your feet, uncontrolled sugar makes situations like this far more likely to occur (and better control, obviously, reduces how often this could happen) uncontrolled diabetes -as above noted, the uncontrolled sugar is far and away the main reason for your current foot infection, but far more worrisome is that your current uncontrolled sugar is also putting you at huge risk for further vascular events (high sugar clogs arteries, so further heart attacks, strokes, kidney disease as well as further infections) -when we talked about things, you clearly understand how to take care of yourself extremely well, the hard part is following through when life stressors are getting in the way. -while everything we talked about is important, probably the highest yield way to make a quick and meaningful impact in your sugar control would be focusing in on giving enough insulin to match the carbs that you're eating -- and "grade your work" by checking sugars 2 hours after eating/after giving insulin (your outlined goals work, an easy to remember would be to target a 2 hour after eating sugar of about 100-150) --> obviously there's a lot more you can be doing , but when you look at where most people run into the biggest control issues ( and therefore the biggest way to make a quick difference with the least amount of work given how stressful life is right now) better mealtime control can really make a dent quickly (remember the patient i cited for you who took an A1c from about 11.5% to 6.5% in three months....and also remember that as we talked, good control isn't a "studying for the test" situation, because if you only have good control leading up to bloodwork, you can be clogging arteries AND having a false sense of security that things are better than they really are Current Hospital Diet Patient's current hospital diet: Diabetes Type 1 Diet Discharge Diet Recommended Diet: Diabetes Type 1 Diet Pending Studies Studies pending at discharge: no Laboratory Results Hemoglobin A1c Test 06/25/17 05:24 Range/Units Estimated Average Glucose 295 mg/dl Hemoglobin A1c 11.9 H 4.5-5.6 % Lipid Panel Test 06/25/17 05:24 Range/Units Triglycerides Level 125 0-150 mg/dl Cholesterol Level 124 0-200 mg/dl HDL Cholesterol 47 mg/dl Cholesterol/HDL Ratio 2.6 LDL Cholesterol, Calculated 52 mg/dl Medical Emergencies . Who to Call and When: Medical Emergencies: If at any time you feel your situation is an emergency, please call 911 immediately. . Non-Emergent Contact Non-Emergency issues call your: Primary Care Provider, Specialist (wound clinic ) . . "Provider Documentation" section prepared by Ranjan Huggins. . VTE Core Measure Inpt VTE Proph given/why not?: Enoxaparin (Lovenox)SQ
--- NOTE | 2017-06-27 16:45 | Discharge Summary ---
Discharge Summary Date of Service Jun 27, 2017. Discharge Summary Admission Date: Jun 24, 2017 at 13:36 Discharge Date: Jun 27, 2017 Discharge Disposition: Home Principal Diagnosis: diabetic foot infection / cellulitis and myositis Procedures: [~ rep ct add3]] MRI OF THE LEFT FOREFOOT WITHOUT AND WITH GADOLINIUM CLINICAL HISTORY: Diabetic foot ulcer. Possible osteomyelitis. COMPARISON STUDY: No previous studies for comparison. FINDINGS: Imaging was performed in the sagittal, axial and coronal planes. The patient was imaged before and after administration of 10 cc of intravenous Gadavist. There is a radiopaque marker at the level of a dorsal soft tissue ulceration. This is located between the great toe and second toe webspace. There are no areas of marrow edema to indicate osteomyelitis. There is apparent sinus tract extending to the plantar aspect of the foot. There are 2 T2 bright collections each of which measures approximately 1 cm. These do not demonstrate ring enhancement which suggests phlegmonous changes opposed to a true abscess. There is also a small fluid collection along the left second toe extensor tendon. There is diffuse soft tissue edema present. This involves the intrinsic musculature of the foot suggesting a nonspecific myositis. IMPRESSION: 1. No evidence of osteomyelitis 2. Diffuse soft tissue edema including intramuscular edema indicative of a diffuse myositis 3. Dorsal soft tissue ulceration with a sinus tract extending to 2 T2 bright foci within the plantar aspect of the foot each of which measures approximately 1 cm. As there is no rim enhancement, phlegmonous change is favored over a true abscess. Electronically signed by: Cliff Kilgore M.D. 06/26/2017 2:29 PM Dictated Date/Time: 06/26/2017 2:17 PM ~ rep ct add3]] LEFT VENOUS DOPP LOWER EXT UNILAT CLINICAL HISTORY: 51 years-old Male presenting with Left foot infection, concern for additional DVT. TECHNIQUE: Real-time grayscale and color and spectral Doppler ultrasound imaging of the veins of the 06/24/2017 was performed. Compression and augmentation were also utilized. COMPARISON: None. FINDINGS: Left: Common femoral vein: Patent. Femoral vein: Patent. Greater saphenous vein: Patent. Popliteal vein: Patent. Calf veins: Limited visualization. Other: Enlarged left inguinal lymph node, which maintains a benign morphology with normal fatty hilum and comparatively normal cortical thickness. IMPRESSION: No evidence of deep venous thrombosis. wound culture with mullen-sensitive staph aureus Hemoglobin A1c Test 06/25/17 05:24 Range/Units Estimated Average Glucose 295 mg/dl Hemoglobin A1c 11.9 H 4.5-5.6 % Lipid Panel Test 06/25/17 05:24 Range/Units Triglycerides Level 125 0-150 mg/dl Cholesterol Level 124 0-200 mg/dl HDL Cholesterol 47 mg/dl Cholesterol/HDL Ratio 2.6 LDL Cholesterol, Calculated 52 mg/dl Test 06/25/17 05:24 Hemoglobin A1c 11.9 % (4.5-5.6) H Last Resulted CBC 06/25/17 05:24 Last Resulted BMP 06/24/17 11:18 06/27/17 05:47 Medication Reconciliation New Medications: Amoxicillin & Pot Clavulanate (Augmentin 875-125 mg) 1 Tab Tab 875 MG PO BID, #42 TAB Lactobacillus Acidophilus (Floranex) 1 Tab Tab 4 TAB PO TIDM, #30 TAB Metoprolol Succinate (Metoprolol Succinate ER) 25 Mg Tabcr 25 MG PO QAM, #30 TAB Continued Medications: Aspirin (Aspirin Ec) 81 Mg Tab 81 MG PO DAILY Atorvastatin (Lipitor) 80 Mg Tab 80 MG PO HS, TAB Gabapentin (Neurontin) 300 Mg Cap 300 MG PO BID, CAP Insulin Aspart (Novolog) 100 Units/Ml Inj 20 UNITS SQ QAM Insulin Aspart (Novolog) 100 Units/Ml Inj 25 UNITS SQ DAILYBD Insulin Detemir (Levemir) 100 Units/Ml Inj 32 UNITS SQ HS Ramipril (Altace) 10 Mg Cap 10 MG PO BID, CAP Discharge Exam Physical Exam: General Appearance: no apparent distress Eyes: EOMI ENT: hearing grossly normal Neck: trachea midline Respiratory/Chest: no respiratory distress, no accessory muscle use Neurologic/Psychiatric: research consultant II-XII nml as tested, alert, normal mood/affect Skin: normal color, warm/dry Hospital Course Cellulitis/myositis/diabetic foot infection: -ongoing wound care at wound clinic, offloading with boot given by orthotics -treated with zosyn while inpatient - improving nicely. showing mullen- sensitive staph (although infection likely polymicrobial, this being the dominant jake grown is reassuring against resistant pathogens) --> transition to augmentin at discharge. due to myositis on MRI Rx written for 3wks, however, true duration of abx will need to be determined based on clinical response -scheduled with wound clinic and PCP both by the end of this week DM-I: uncontrolled -improved control in hospital -reiterated extensive discussion w pt on control - he actually expresses very solid understanding of self-care, carb-based insulins, etc, and now is starting to express more motivation to care for himself regardless of other surrounding circumstances -- home on insulin management HTN: continue home meds Hyperlipidemia: continue home meds Lipids at goal CAD w [place]: stent x1 continue aspirin 81mg -no sx Peripheral neuropathy: continue home meds, better sugar control Other: Full code DM diet lovenox DVT proph stable for home Total Time Spent: Greater than 30 minutes This includes examination of the patient, discharge planning, medication reconciliation, and communication with other providers. Discharge Instructions Please refer to the electronic Patient Visit Report (Discharge Instructions) for additional information. Additional Copies To Amber Vázquez MD; Alex Bautista, DO
[2017-06-27 17:46] VITALS: BP 147/87; PULSE 86; TEMP 36.9; O2SAT 96
[2017-07-02] MEDS ORDERED: SULF800T23 PO (09:26)
== END 2017-06-27 18:15 | disposition home or self-care (01) | DRG 982 ==
LOC: C.EDB 10:50 → C.MED 13:36 → ENRESERV 13:44 → CANRESERV 13:44 → EDBEDREQSVC 13:48 → ENRESERV 14:08
PROVIDERS: ADMIT Family Medicine; ATTEND Family Medicine
PROC: 0JDR0ZZ Extraction of Left Foot Subcutaneous Tissue and Fascia, Open Approach (ICD-10-PCS; principal; 2017-06-25)
DX: E10.628 Type 1 diabetes mellitus with other skin complications (principal); L03.116 Cellulitis of left lower limb; M60.074 Infective myositis, left foot; E10.40 Type 1 diabetes mellitus with diabetic neuropathy, unspecified; E10.65 Type 1 diabetes mellitus with hyperglycemia; I10 Essential (primary) hypertension; E78.5 Hyperlipidemia, unspecified; I25.10 Atherosclerotic heart disease of native coronary artery without angina pectoris; I25.2 Old myocardial infarction; Z79.4 Long term (current) use of insulin; Z79.82 Long term (current) use of aspirin; Z79.899 Other long term (current) drug therapy; Z95.5 Presence of coronary angioplasty implant and graft; Z83.3 Family history of diabetes mellitus